=== PATIENT | male | born 1990 | race Caucasian/White ===

== ENCOUNTER 2019-11-22 22:39 | Emergency (ER) | payer MEDICAID, SELFPAY ==
[~2019-11-22] VITALS: Ht 170.2 cm; Wt 122.5 kg
[2019-11-22 22:45] VITALS: BP 134/96
[2019-11-23] MEDS ORDERED: ACETAMINOPHEN EXTRA STRENGTH 500 MG TAB PO ONE (00:35)
[2019-11-23 02:00] VITALS: BP 131/78
== END 2019-11-23 02:02 | disposition home or self-care (01) ==
LOC: EEVIPCON 22:39 → MED 22:39
DX: J20.9 Acute bronchitis, unspecified (principal); Z20.828 Contact with and (suspected) exposure to other viral communicable diseases
CPT/HCPCS: 36415; 71045; 87804; 99284